=== PATIENT | female | born 1980 | race Caucasian/White ===

== ENCOUNTER 2019-06-17 08:40 | Emergency (ER) | payer MEDICAID ==
[~2019-06-17] VITALS: Ht 160 cm; Wt 94.8 kg
[~2019-06-17 08:40] MED LIST: BENZ-51 PO; FURO-149 PO; MAGN296S68 CORPAK; POTA20TA19 PO; PRED20TA PO; SEAWEED; TRAM50TA2 PO
[2019-06-17 08:46] VITALS: BP 143/99
[2019-06-17] MEDS ORDERED: ACET-1017 PO (09:24)
[2019-06-17] MEDS ORDERED: acetaminophen 325mg tablet PO ONE ×2 (09:25)
== END 2019-06-17 09:43 | disposition home or self-care (01) ==
LOC: ER 08:40
DX: B34.9 Viral infection, unspecified (principal); R09.89 Other specified symptoms and signs involving the circulatory and respiratory systems; R09.81 Nasal congestion; R05 Cough; J45.909 Unspecified asthma, uncomplicated; F41.9 Anxiety disorder, unspecified; J00 Acute nasopharyngitis [common cold]; Z90.49 Acquired absence of other specified parts of digestive tract; Z90.89 Acquired absence of other organs; Z98.890 Other specified postprocedural states; Z79.899 Other long term (current) drug therapy
CPT/HCPCS: 87502; 87503; 99283

== ENCOUNTER 2019-09-04 21:51 | Emergency (ER) | payer MEDICAID ==
[~2019-09-04] VITALS: Ht 160 cm; Wt 103.0 kg
--- NOTE | 2019-09-04 23:05 | NUR ---
Dr. Espino in room talking to patient.
[2019-09-04] MEDS ORDERED: ketorolac trometh inj. 60 MG/2 ML VIAL IM ONE (23:10)
[2019-09-04 23:39] LABS: BASOPHILS % (AUTO) 0.3 % (0-1); EOSINOPHILS # (AUTO) 0.1 X10'3 (0-0.9); HEMATOCRIT 39.9 % (35.0-45.0); HEMOGLOBIN 13.7 g/dl (12.0-16.0); LYMPHOCYTES % (AUTO) 34.9 % (21-51); MEAN CORPUSCULAR HEMOGLOBIN 30.3 PG (27.0-31.0); MEAN CORPUSCULAR HGB CONC 34.2 g/dL (33.0-36.5); MEAN CORPUSCULAR VOLUME 88.5 FL (78-98); MEAN PLATELET VOLUME 6.4 FL (7.4-10.4); MONOCYTES # (AUTO) 1.4 X10'3 (0-0.9); MONOCYTES % (AUTO) 11.9 % (2-12); NEUTROPHILS # (AUTO) 5.9 X10'3 (1.8-7.7); NEUTROPHILS % (AUTO) 51.9 % (42-75); PLATELET COUNT 282 X10'3 (140-440); RED BLOOD COUNT 4.51 X10'6 (4.20-5.60); RED CELL DISTRIBUTION WIDTH 12.5 % (11.5-14.5); WHITE BLOOD COUNT 11.4 X10'3 (4.5-11.0)
[2019-09-04 23:50] LABS: ALANINE AMINOTRANSFERASE 13 U/L (12-78); ALBUMIN 3.7 G/DL (3.4-5.0); ALBUMIN/GLOBULIN RATIO 1.2 (1.1-1.5); ALKALINE PHOSPHATASE 73 IU/L (46-116); ANION GAP 7 (8-16); ASPARTATE AMINO TRANSFERASE 12 U/L (10-37); BILIRUBIN,TOTAL 0.3 MG/DL (0.1-1.0); BLOOD UREA NITROGEN 18 MG/DL (7-18); BUN/CREATININE RATIO 15.8 (6.6-38.0); CALCIUM 8.6 MG/DL (8.5-10.1); CHLORIDE 101 MMOL/L (99-107); CREATININE 1.14 MG/DL (0.40-0.90); GLUCOSE 103 MG/DL (70-104); POTASSIUM 3.5 MMOL/L (3.5-5.1); SODIUM 136 MMOL/L (135-145); TOTAL CARBON DIOXIDE 27.7 MMOL/L (24-32); TOTAL PROTEIN 6.9 G/DL (6.4-8.2); eGFR 53 ML/MIN
[2019-09-05 00:39] VITALS: BP 114/73
== END 2019-09-05 00:40 | disposition home or self-care (01) ==
LOC: ER 21:52
DX: M79.605 Pain in left leg (principal); J45.909 Unspecified asthma, uncomplicated; F41.9 Anxiety disorder, unspecified; Z90.49 Acquired absence of other specified parts of digestive tract; Z98.890 Other specified postprocedural states; Z79.899 Other long term (current) drug therapy
CPT/HCPCS: 36415; 80053; 85025; 93971; 96372; 99284; J1885

== ENCOUNTER 2019-09-14 05:58 | Emergency (ER) | payer MEDICAID ==
[~2019-09-14] VITALS: Ht 160 cm; Wt 97.3 kg
[2019-09-14] MEDS ORDERED: FLUT16SP2 BOTHNARES (06:24)
[2019-09-14 06:36] VITALS: BP 120/68
== END 2019-09-14 06:39 | disposition home or self-care (01) ==
LOC: ER 05:59
DX: H92.03 Otalgia, bilateral (principal); J45.909 Unspecified asthma, uncomplicated; F41.9 Anxiety disorder, unspecified; F12.90 Cannabis use, unspecified, uncomplicated; Z90.49 Acquired absence of other specified parts of digestive tract; Z90.89 Acquired absence of other organs; Z98.890 Other specified postprocedural states; Z72.89 Other problems related to lifestyle; Z88.1 Allergy status to other antibiotic agents; Z88.8 Allergy status to other drugs, medicaments and biological substances; Z79.899 Other long term (current) drug therapy
CPT/HCPCS: 99283

== ENCOUNTER 2021-07-25 08:00 | Day surgery (SDC) | payer MEDICAID ==
[~2021-07-25] VITALS: Ht 160 cm; Wt 100.0 kg
[~2021-07-25 08:00] MED LIST changes: -BENZ-51 PO; +BENZ-69 PO; +FLUT16SP2 BOTHNARES; +POTA-207 PO; -POTA20TA19 PO
[2021-07-25 08:15] VITALS: BP 100/71
[2021-07-25] MEDS ORDERED: MIDAZolam 1 MG/ML 5ML VIAL ONE (08:20)
[2021-07-25] MEDS ORDERED: fentaNYL/PF 50MCG/1 ML 2ML syringe ONE (08:20)
[2021-07-25] MEDS ORDERED: LIDOcaine Viscous 15ml cup ONE (08:21)
[2021-07-25] MEDS ORDERED: SODI650T29 PO (08:27)
[2021-07-25 09:32] VITALS: BP 113/79
[2021-07-25 09:42] VITALS: BP 120/79
[2021-07-25 09:52] VITALS: BP 117/83
[2021-07-25 10:02] VITALS: BP 122/87
== END 2021-07-25 10:10 | disposition home or self-care (01) ==
LOC: GI LAB 08:00
PROVIDERS: ATTEND Internal Medicine Gastroenterology
DX: K21.00 Gastro-esophageal reflux disease with esophagitis, without bleeding (principal); K22.89 Other specified disease of esophagus; K44.9 Diaphragmatic hernia without obstruction or gangrene; K29.50 Unspecified chronic gastritis without bleeding; Z87.891 Personal history of nicotine dependence; F12.90 Cannabis use, unspecified, uncomplicated; Z79.899 Other long term (current) drug therapy
CPT/HCPCS: 43239; 99152; J2250; J3010; J7030; Z7512; A4620

== ENCOUNTER → 2021-08-15 | Day surgery (SDC) | payer MEDICAID ==
[2021-08-15] VITALS (10 sets, daily range): BP systolic 110–133; BP diastolic 76–94
[~2021-08-15] VITALS: Ht 160 cm; Wt 103.1 kg
[~2021-08-15] MED LIST changes: +ASPI-1265 PO; -BENZ-69 PO; +DOCU100C40 PO; -FLUT16SP2 BOTHNARES; +FURO20TA4 PO; +HYDROcodone/acetaminophen 5mg/325mg tablet PO PRN; +IBUP-1985 PO; +LIDOCAINE 1% w/preservative (10 MG/ML) inj. 10mL VIAL ONE; -MAGN296S68 CORPAK; +MELO-102 PO; +NITR0.4T48 PO; +OMEP40CA21 PO; -POTA-207 PO; -PRED20TA PO; +SODI650T29 PO; -TRAM50TA2 PO; +TURM1POW PO; +diphenhydrAMINE 25mg capsule PO PRN; +fentaNYL/PF 50MCG/1 ML 2ML syringe ONE; +heparin 1,000unit/ml 10ml vial 10 ML ONE; +iohexol 350 MG/ML 50ML vial IV ONE; +iohexol 350MG/ML 100ml bottle IV ONE; +midazolam 1 mg/ML 2ml injection ONE; +nitroGLYCERIN-Tridil 50MG/D5W 250 ML IV ONE; +normal saline 1,000 ML IV SCH; +normal saline 1000ml 1,000 ML IV ONE; +ondansetron/PF 4mg/2ml inj IV PRN; +verapamil 2.5 mg/ml inj IV ONE
[2021-08-15 08:11] LABS: BASOPHILS % (AUTO) 0.4 % (0-1); EOSINOPHILS % (AUTO) 0.5 % (0-6); HEMATOCRIT 40.8 % (35.0-45.0); HEMOGLOBIN 13.8 g/dl (12.0-16.0); LYMPHOCYTES # (AUTO) 1.6 X10'3 (1.1-4.8); LYMPHOCYTES % (AUTO) 18.9 % (21-51); MEAN CORPUSCULAR HEMOGLOBIN 29.9 PG (27.0-31.0); MEAN CORPUSCULAR HGB CONC 33.9 g/dL (33.0-36.5); MEAN CORPUSCULAR VOLUME 88.1 FL (78-98); MONOCYTES # (AUTO) 0.8 X10'3 (0-0.9); MONOCYTES % (AUTO) 9.8 % (2-12); NEUTROPHILS # (AUTO) 5.9 X10'3 (1.8-7.7); NEUTROPHILS % (AUTO) 70.4 % (42-75); PLATELET COUNT 305 X10'3 (140-440); RED BLOOD COUNT 4.63 X10'6 (4.20-5.60); RED CELL DISTRIBUTION WIDTH 13.5 % (11.5-14.5); WHITE BLOOD COUNT 8.3 X10'3 (4.5-11.0)
[2021-08-15 08:12] LABS: ALBUMIN 3.7 G/DL (3.4-5.0); ANION GAP 11 (8-16); BLOOD UREA NITROGEN 15 MG/DL (7-18); BUN/CREATININE RATIO 16.1 (6.6-38.0); CALCIUM 8.4 MG/DL (8.5-10.1); CHLORIDE 107 MMOL/L (99-107); CREATININE 0.93 MG/DL (0.40-0.90); GLUCOSE 98 MG/DL (70-104); MAGNESIUM 2.3 MG/DL (1.5-2.4); POTASSIUM 4.1 MMOL/L (3.5-5.1); SODIUM 140 MMOL/L (135-145); TOTAL CARBON DIOXIDE 21.6 MMOL/L (24-32); eGFR 66 ML/MIN
--- NOTE | 2021-08-15 10:30 | NUR ---
Pt complaint of right wrist pain. 01/16. Pt is able to move her right fingers. Pulse ox to right thumb 97%. Denies numbness, denies tingling. 2ml of air removed from vascular band. Pt reports "feels a bit better". Will continue to monitor.
--- NOTE | 2021-08-15 10:40 | NUR ---
IV fluids infusing as ordered.
--- NOTE | 2021-08-15 10:40 | NUR ---
Pt ambulated to bathroom, voided. Site stable, vascular band in place. DRSG CD&I. VS stable as charted. Pt had 250ml oral fluid intake. Denies N/V.
== END | disposition home or self-care (01) ==
LOC: SSTAY O 06:37
PROVIDERS: ATTEND Internal Medicine Cardiovascular Disease
DX: R94.39 Abnormal result of other cardiovascular function study (principal); R07.89 Other chest pain; I10 Essential (primary) hypertension; E78.5 Hyperlipidemia, unspecified; Z87.891 Personal history of nicotine dependence; Z79.899 Other long term (current) drug therapy
CPT/HCPCS: 36415; 80048; 83735; 85025; 85610; 93005; 93458; 99152; 99153; C1894; J1644; J2250; J3010; J3490; J7030; Q0163; Q9967; A4620; A5120; A6258; C1769

== ENCOUNTER 2022-04-17 11:47 | Emergency (ER) | payer MEDICAID ==
[~2022-04-17] VITALS: Ht 160 cm; Wt 104.0 kg
[~2022-04-17 11:47] MED LIST changes: -FURO-149 PO; -HYDROcodone/acetaminophen 5mg/325mg tablet PO PRN; -LIDOCAINE 1% w/preservative (10 MG/ML) inj. 10mL VIAL ONE; -SEAWEED; -SODI650T29 PO; -diphenhydrAMINE 25mg capsule PO PRN; -fentaNYL/PF 50MCG/1 ML 2ML syringe ONE; -heparin 1,000unit/ml 10ml vial 10 ML ONE; -iohexol 350 MG/ML 50ML vial IV ONE; -iohexol 350MG/ML 100ml bottle IV ONE; -midazolam 1 mg/ML 2ml injection ONE; -nitroGLYCERIN-Tridil 50MG/D5W 250 ML IV ONE; -normal saline 1,000 ML IV SCH; -normal saline 1000ml 1,000 ML IV ONE; -ondansetron/PF 4mg/2ml inj IV PRN; -verapamil 2.5 mg/ml inj IV ONE
[2022-04-17 12:18] VITALS: BP 154/105
== END 2022-04-17 18:06 | disposition left against medical advice (07) ==
LOC: ER 11:47
DX: R60.0 Localized edema (principal); Z53.21 Procedure and treatment not carried out due to patient leaving prior to being seen by health care provider

== ENCOUNTER 2022-07-08 21:53 | Emergency (ER) | payer MEDICAID ==
[~2022-07-08] VITALS: Ht 160 cm; Wt 104.3 kg
[2022-07-08 22:01] VITALS: BP 128/86
[2022-07-08] MEDS ORDERED: LIDOcaine Viscous 15ml cup MM STA (22:21)
[2022-07-08] MEDS ORDERED: dexamethasone sod phosphate 10mg/ml inj PO STA (22:21)
[2022-07-08 22:47] LABS: BASOPHILS % (AUTO) 0.5 % (0-1); EOSINOPHILS # (AUTO) 0.1 X10'3 (0-0.9); EOSINOPHILS % (AUTO) 0.9 % (0-6); HEMOGLOBIN 14.5 g/dl (12.0-16.0); LYMPHOCYTES # (AUTO) 3.2 X10'3 (1.1-4.8); LYMPHOCYTES % (AUTO) 32.9 % (21-51); MEAN CORPUSCULAR HEMOGLOBIN 31.3 PG (27.0-31.0); MEAN CORPUSCULAR HGB CONC 34.6 g/dL (33.0-36.5); MEAN CORPUSCULAR VOLUME 90.7 FL (78-98); MEAN PLATELET VOLUME 6.4 FL (7.4-10.4); MONOCYTES # (AUTO) 1.2 X10'3 (0-0.9); MONOCYTES % (AUTO) 12.2 % (2-12); NEUTROPHILS # (AUTO) 5.2 X10'3 (1.8-7.7); NEUTROPHILS % (AUTO) 53.5 % (42-75); PLATELET COUNT 325 X10'3 (140-440); RED BLOOD COUNT 4.63 X10'6 (4.20-5.60); RED CELL DISTRIBUTION WIDTH 13.8 % (11.5-14.5); WHITE BLOOD COUNT 9.8 X10'3 (4.5-11.0)
--- NOTE | 2022-07-08 22:54 | NUR ---
PO MEDS X2 GIVEN
[2022-07-08 22:59] LABS: MONOTEST NEGATIVE (Neg)
[2022-07-08 23:05] LABS: ALANINE AMINOTRANSFERASE 24 U/L (12-78); ALBUMIN 3.9 G/DL (3.4-5.0); ALKALINE PHOSPHATASE 95 IU/L (46-116); ANION GAP 10 (8-16); ASPARTATE AMINO TRANSFERASE 16 U/L (10-37); BILIRUBIN,TOTAL 0.2 MG/DL (0.1-1.0); BLOOD UREA NITROGEN 11 MG/DL (7-18); BUN/CREATININE RATIO 12.1 (10.0-20.0); CALCIUM 9.3 MG/DL (8.5-10.1); CHLORIDE 102 MMOL/L (99-107); CREATININE 0.91 MG/DL (0.40-0.90); GLUCOSE 109 MG/DL (70-104); POTASSIUM 3.6 MMOL/L (3.5-5.1); SODIUM 137 MMOL/L (135-145); TOTAL CARBON DIOXIDE 24.7 MMOL/L (24-32); TOTAL PROTEIN 7.7 G/DL (6.4-8.2); eGFR 67 ML/MIN
[2022-07-08] MEDS ORDERED: iohexol 300mg/ml 100ml inj. ONE (23:23)
[2022-07-09] MEDS ORDERED: PANT-47 PO (00:20)
[2022-07-09] MEDS ORDERED: pantoprazole 40mg Tablet.DR PO ONE (00:25)
[2022-07-09] MEDS ORDERED: mag hydrox/Alum hydrox/simeth 30ml oral suspension PO ONE (00:25)
--- NOTE | 2022-07-09 00:43 | NUR ---
po meds x2 given
--- NOTE | 2022-07-09 00:48 | NUR ---
iv dc'd pt being discharged dressing applied
== END 2022-07-09 00:48 | disposition home or self-care (01) ==
LOC: ER 21:54
DX: J04.0 Acute laryngitis (principal); J02.9 Acute pharyngitis, unspecified; J45.909 Unspecified asthma, uncomplicated; F41.9 Anxiety disorder, unspecified; Z90.49 Acquired absence of other specified parts of digestive tract; Z98.890 Other specified postprocedural states; Z90.89 Acquired absence of other organs; F12.90 Cannabis use, unspecified, uncomplicated; Z72.89 Other problems related to lifestyle; Z88.1 Allergy status to other antibiotic agents; Z88.8 Allergy status to other drugs, medicaments and biological substances; Z79.82 Long term (current) use of aspirin; Z79.899 Other long term (current) drug therapy
CPT/HCPCS: 36415; 70491; 80053; 85025; 86308; 87081; 87880; 99285; J1100; Q9967

== ENCOUNTER 2023-07-09 08:47 | Emergency (ER) | payer MEDICAID ==
[~2023-07-09] VITALS: Ht 160 cm; Wt 110.2 kg
[~2023-07-09 08:47] MED LIST changes: +PANT-47 PO
[2023-07-09 08:48] VITALS: BP 154/101; PULSE 119; RESP 16; TEMP 98; O2SAT 98
[2023-07-09] MEDS: ketorolac tromethamine 15mg/ml inj. IM ONE (13:45)
== END 2023-07-09 14:32 | disposition home or self-care (01) ==
LOC: ER 08:47
DX: M79.18 Myalgia, other site (principal); J45.909 Unspecified asthma, uncomplicated; F12.90 Cannabis use, unspecified, uncomplicated; Z88.8 Allergy status to other drugs, medicaments and biological substances; Z91.041 Radiographic dye allergy status; Z79.82 Long term (current) use of aspirin; Z79.899 Other long term (current) drug therapy
CPT/HCPCS: 76700; 96372; 99285; J1885

== ENCOUNTER 2023-08-01 10:29 | Emergency (ER) | payer MEDICAID ==
[~2023-08-01] VITALS: Ht 160 cm; Wt 109.3 kg
[2023-08-01 10:37] VITALS: BP 167/122; PULSE 102; RESP 16; TEMP 98.6; O2SAT 99
== END 2023-08-01 11:50 | disposition home or self-care (01) ==
LOC: ER 10:30
DX: G89.29 Other chronic pain (principal); M25.551 Pain in right hip; J45.909 Unspecified asthma, uncomplicated; F12.90 Cannabis use, unspecified, uncomplicated; Z88.8 Allergy status to other drugs, medicaments and biological substances; Z91.041 Radiographic dye allergy status; Z79.82 Long term (current) use of aspirin; Z79.899 Other long term (current) drug therapy; Z79.1 Long term (current) use of non-steroidal anti-inflammatories (NSAID); Z98.890 Other specified postprocedural states
CPT/HCPCS: 73502; 99283

== ENCOUNTER 2023-08-20 06:25 | Emergency (ER) | payer MEDICAID ==
[~2023-08-20] VITALS: Ht 160 cm; Wt 111.4 kg
[2023-08-20 08:22] LABS: BASOPHILS % (AUTO) 0.3 % (0-1); EOSINOPHILS % (AUTO) 0.6 % (0-6); HEMATOCRIT 43.7 % (35.0-45.0); HEMOGLOBIN 14.5 g/dl (12.0-16.0); LYMPHOCYTES # (AUTO) 1.7 X10'3 (1.1-4.8); LYMPHOCYTES % (AUTO) 23.8 % (21-51); MEAN CORPUSCULAR HEMOGLOBIN 29.8 PG (27.0-31.0); MEAN CORPUSCULAR HGB CONC 33.3 g/dL (33.0-36.5); MEAN CORPUSCULAR VOLUME 89.6 FL (78-98); MEAN PLATELET VOLUME 6.9 FL (7.4-10.4); MONOCYTES # (AUTO) 0.8 X10'3 (0-0.9); MONOCYTES % (AUTO) 10.8 % (2-12); NEUTROPHILS # (AUTO) 4.6 X10'3 (1.8-7.7); NEUTROPHILS % (AUTO) 64.5 % (42-75); PLATELET COUNT 296 X10'3 (140-440); RED BLOOD COUNT 4.88 X10'6 (4.20-5.60); RED CELL DISTRIBUTION WIDTH 13.2 % (11.5-14.5); WHITE BLOOD COUNT 7.1 X10'3 (4.5-11.0)
[2023-08-20 08:24] LABS: BILIRUBIN,URINE NEGATIVE (Neg); CLARITY,URINE CLEAR (Clear); COLOR,URINE STRAW (Yellow); GLUCOSE, URINE NEGATIVE (Neg); KETONES,URINE NEGATIVE (Neg); LEUKOCYTE ESTERASE ,URINE TRACE (Neg); NITRITES, URINE NEGATIVE (Neg); OCCULT BLOOD,URINE TRACE-INTACT (Neg); PROTEIN,URINE NEGATIVE (Neg); UROBILINOGEN,URINE 0.2 E.U/dL (0.2-1.0)
[2023-08-20 08:25] LABS: PREOP URINE HCG NEGATIVE (NEGATIVE)
[2023-08-20] MEDS: ringers solution, lacted 1,000 ML IV ONE (08:25)
[2023-08-20 08:28] LABS: UA COLLECTION TYPE NON-SPECIFIED
[2023-08-20 08:29] LABS: BACTERIA,URINE 1+ /HPF (Neg); RBC,URINE 0-2 /HPF (0-2); SQUAMOUS EPITHELIAL CELL,UR FEW /LPF (FEW); WBC,URINE 0-4 /HPF (0-4)
[2023-08-20 08:31] LABS: URINE AMPHETAMINE SCREEN NEGATIVE (Neg); URINE BARBITUATE SCREEN NEGATIVE (Neg); URINE BENZODIAZEPINES SCREEN NEGATIVE (Neg); URINE CANNABINOID SCREEN POSITIVE (Neg); URINE COCAINE SCREEN NEGATIVE (Neg); URINE METHADONE SCREEN NEGATIVE (Neg); URINE OPIATE SCREEN NEGATIVE (Neg); URINE PHENCYCLIDINE SCREEN NEGATIVE (Neg)
[2023-08-20 08:37] LABS: ALANINE AMINOTRANSFERASE 17 U/L (12-78); ALBUMIN 3.5 G/DL (3.4-5.0); ALBUMIN/GLOBULIN RATIO 0.9 (1.1-1.5); ALKALINE PHOSPHATASE 80 IU/L (46-116); ANION GAP 9 (8-16); ASPARTATE AMINO TRANSFERASE 11 U/L (10-37); BILIRUBIN,TOTAL 0.2 MG/DL (0.1-1.0); BLOOD UREA NITROGEN 13 MG/DL (7-18); BUN/CREATININE RATIO 14.3 (10.0-20.0); CALCIUM 9.2 MG/DL (8.5-10.1); CHLORIDE 106 MMOL/L (99-107); CREATININE 0.91 MG/DL (0.40-0.90); GLUCOSE 97 MG/DL (70-104); LIPASE 37 U/L (16-77); POTASSIUM 3.8 MMOL/L (3.5-5.1); SODIUM 139 MMOL/L (135-145); TOTAL CARBON DIOXIDE 24.2 MMOL/L (24-32); TOTAL PROTEIN 7.4 G/DL (6.4-8.2); eCRCL 65 ML/MIN; eGFR 67 ML/MIN
[2023-08-20 10:21] VITALS: BP 124/80; PULSE 82; RESP 16; TEMP 97.9; O2SAT 98
== END 2023-08-20 10:26 | disposition home or self-care (01) ==
LOC: ER 06:27
DX: M94.0 Chondrocostal junction syndrome [Tietze] (principal); J45.909 Unspecified asthma, uncomplicated; F41.9 Anxiety disorder, unspecified; Z98.890 Other specified postprocedural states; Z90.89 Acquired absence of other organs; Z72.89 Other problems related to lifestyle; Z88.8 Allergy status to other drugs, medicaments and biological substances; Z79.899 Other long term (current) drug therapy; Z79.2 Long term (current) use of antibiotics
CPT/HCPCS: 36415; 74150; 80053; 80305; 81001; 81025; 83690; 85025; 96360; 99284; J7120

== ENCOUNTER 2024-01-10 05:21 | Emergency (ER) | payer MEDICAID ==
[~2024-01-10] VITALS: Ht 160 cm; Wt 105.2 kg
[2024-01-10] MEDS ORDERED: ALBU8HFA INH (06:41)
[2024-01-10] MEDS ORDERED: IBUP-24 PO (06:41)
[2024-01-10] MEDS ORDERED: ACET-2006 PO (06:41)
[2024-01-10] MEDS ORDERED: BENZ-38 PO (06:41)
[2024-01-10 07:00] VITALS: BP 175/100; PULSE 120; RESP 20; TEMP 99.3; O2SAT 98
== END 2024-01-10 07:02 | disposition home or self-care (01) ==
LOC: ER 05:21
DX: U07.1 COVID-19 (principal); J45.909 Unspecified asthma, uncomplicated; F12.90 Cannabis use, unspecified, uncomplicated; Z88.1 Allergy status to other antibiotic agents; Z88.6 Allergy status to analgesic agent; Z88.8 Allergy status to other drugs, medicaments and biological substances; Z90.89 Acquired absence of other organs
CPT/HCPCS: 36415; 87811; 93005; 99284